=== PATIENT | male | born 1990 | race Caucasian/White ===

== ENCOUNTER 2017-03-29 10:02 | Emergency (ER) | payer SELFPAY ==
[~2017-03-29] VITALS: Ht 190.5 cm; Wt 67.0 kg
[~2017-03-29 10:02] MED LIST: DICL75TA PO; ROBA750T PO
[2017-03-29 10:08] VITALS: BP 132/74; PULSE 91; RESP 16; TEMP 97.3; O2SAT 98
--- NOTE | 2017-03-29 11:13 | PD ---
HPI Chief Complaint: Oral / Dental Pain or Problem Time Seen by Provider: 11:00 Travel History International Travel<30 days: No Contact w/Intl Traveler<30days: No Traveled to known affect area: No History of Present Illness HPI 27-year-old male presents to the emergency room for evaluation of left-sided lower dental pain and swelling that started yesterday. States he had no pain prior to onset of the symptoms. Patient has had so much pain he has been unable to eat and drink. He has not taken anything or done anything for his symptoms. Pain is worsened with any range of motion of the jaw. Denies drainage, fever, chills, nausea, and vomiting. Does not have a dentist. No chronic medical conditions or daily medications. PFSH Past Medical History Hx Anticoagulant Therapy: No Arthritis: No Asthma: Yes (SPORTS INDUCED YOUNGER AGE) Autoimmune Disease: No Blood Disorders: No Heart Rhythm Problems: No Cardiovascular Problems: No Chemotherapy: No Chest Pain: No Cerebrovascular Accident: No Cystic Fibrosis: No Developmental Delay: No Diabetes: No Diminished Hearing: No Gastrointestinal Disorders: No GERD: No Genitourinary: No Headaches: No Hypertension: No Implanted Vascular Access Dvce: No Musculoskeletal: No Neurologic: No Psychiatric: No Reproductive: No Respiratory: No Immunizations Current: Yes Seizures: No Sickle Cell Disease: No Sleep Apnea: No Ulcer: No Influenza Vaccination: No ?: Not Past Surgical History Abdominal Surgery: No Cardiac Surgery: No Ear Surgery: No Endocrine Surgery: No Eye Surgery: No Genitourinary Surgery: No Gynecologic Surgery: No Hysterectomy: No Neurologic Surgery: No Oral Surgery: No Thoracic Surgery: No Other Surgery: Yes (LEFT LUNG BIOPSY) Social History Alcohol Use: No Tobacco Use: Yes (CIGARETTES, 1 PPD) Substance Use: No (DENIES) Allergies-Medications (Allergen,Severity, Reaction): Uncoded Allergies: ANTIBIOTIC (Allergy, Unknown, 12/26/15) UNKNOWN WHICH ONE Reported Meds & Prescriptions Reported Meds & Active Scripts Active Tramadol (Tramadol HCl) 50 Mg Tab 50 Mg PO Q8H PRN Clindamycin (Clindamycin HCl) 300 Mg Cap 300 Mg PO Q6H 10 Days Review of Systems Except as stated in HPI: all other systems reviewed are Neg Physical Exam Narrative GENERAL: Well-nourished, well-developed male in no acute distress. Afebrile. Ambulatory. SKIN: Focused skin assessment warm/dry. HEAD: Normocephalic. EYES: No scleral icterus. No injection or drainage. NECK: Supple, trachea midline. No JVD or lymphadenopathy. DENTAL: Severe decay throughout. No malocclusion. Patient has limited range of motion of the jaw secondary to pain. CARDIOVASCULAR: Regular rate and rhythm without murmurs, gallops, or rubs. RESPIRATORY: Breath sounds equal bilaterally. No accessory muscle use. Data Data Last Documented VS Vital Signs Date Time Temp Pulse Resp B/P Pulse Ox O2 Delivery O2 Flow Rate FiO2 03/29/17 10:08 97.3 91 16 132/74 98 Orders Complete Blood Count With Diff (03/29/17 11:06) Blood Culture (03/29/17 11:06) Sodium Chloride 0.9% Flush (Ns Flush) (03/29/17 11:15) Clindamycin Inj (Cleocin Inj) (03/29/17 11:15) Morphine Inj (Morphine Inj) (03/29/17 11:15) Ondansetron Inj (Zofran Inj) (03/29/17 11:15) Comprehensive Metabolic Panel (03/29/17 11:06) Iv Access Insert/Monitor (03/29/17 11:06) Dexamethasone Inj (Decadron Inj) (03/29/17 12:45) Hydromorphone Pf Inj (Dilaudid Pf Inj) (03/29/17 12:45) Labs Laboratory Tests Test 03/29/17 03/29/17 11:25 11:58 White Blood Count 8.9 TH/MM3 Red Blood Count 5.41 MIL/MM3 Hemoglobin 15.0 GM/DL Hematocrit 44.6 % Mean Corpuscular Volume 82.6 FL Mean Corpuscular Hemoglobin 27.7 PG Mean Corpuscular Hemoglobin 33.6 % Concent Red Cell Distribution Width 14.8 % Platelet Count 238 TH/MM3 Mean Platelet Volume 7.7 FL Neutrophils (%) (Auto) 69.3 % Lymphocytes (%) (Auto) 19.0 % Monocytes (%) (Auto) 6.7 % Eosinophils (%) (Auto) 0.1 % Basophils (%) (Auto) 4.9 % Neutrophils # (Auto) 6.2 TH/MM3 Lymphocytes # (Auto) 1.7 TH/MM3 Monocytes # (Auto) 0.6 TH/MM3 Eosinophils # (Auto) 0.0 TH/MM3 Basophils # (Auto) 0.4 TH/MM3 CBC Comment DIFF FINAL Differential Comment Sodium Level 138 MEQ/L Potassium Level 3.4 MEQ/L Chloride Level 105 MEQ/L Carbon Dioxide Level 27.4 MEQ/L Anion Gap 6 MEQ/L Blood Urea Nitrogen 7 MG/DL Creatinine 0.71 MG/DL Estimat Glomerular Filtration 135 ML/MIN Rate Random Glucose 106 MG/DL Calcium Level 8.5 MG/DL Total Bilirubin 0.6 MG/DL Aspartate Amino Transf 16 U/L (AST/SGOT) Alanine Aminotransferase 130 U/L (ALT/SGPT) Alkaline Phosphatase 151 U/L Total Protein 7.0 GM/DL Albumin 3.4 GM/DL [facility] Medical Decision Making Medical Screen Exam Complete: Yes Emergency Medical Condition: Yes Medical Record Reviewed: Yes Differential Diagnosis Dentalgia, dental abscess, lymphadenopathy Narrative Course 27-year-old male presents to the emergency room for evaluation of left-sided dental pain and swelling for the past day. Patient denies systemic signs of infection. He is afebrile and well-appearing in the emergency room. Crying in pain. Physical exam reveals severe swelling of the left lower jaw with extreme tenderness to palpation. There is severe decay throughout. I spoke to my attending physician, Dr. Hightower, who assessed the patient and recommend lab work, pain control, and IV antibiotics in the emergency room. CBC and CMP are unremarkable. Because white count is not elevated and patient can open his mouth 2-3 cm, there is no indication for imaging at this time. Patient was given clindamycin, morphine, Zofran in the emergency room. He states morphine did not help. He was then given 0.5 mg Dilaudid and Decadron. Patient is stable for discharge. He was given a dental emergencies handout and prescriptions for clindamycin and tramadol. Told to follow-up with a dentist or return immediately for worsening symptoms. He understands and agrees to plan. Diagnosis Primary Impression: Dental abscess Referrals: Dentist Patient Instructions: Dental Abscess (ED), General Instructions Additional Instructions: Rest and drink plenty of fluids. [place] your teeth twice daily. Clindamycin as directed, until gone. Tramadol as directed, as needed for pain. Do not drink alcohol or drive while taking this medication. Follow-up with a dentist. Return to the emergency room for worsening symptoms. Med/Other Pt SpecificInfo: Prescription(s) given Scripts Tramadol 50 Mg Tab50 Mg PO Q8H PRN (PAIN) #12 TAB Ref 0 Prov:Lisandro Phillips MD 03/29/17 Clindamycin 300 Mg Yld274 Mg PO Q6H 10 Days Ref 0 Prov:Lisandro Phillips MD 03/29/17 Disposition: 01 DISCHARGE HOME Condition: Stable Sydney Carbajal Mar 29, 2017 11:13
[2017-03-29] MEDS ORDERED: MORPHINE SULFATE 4 MG/ML INJ IV PUSH ONE (11:15)
[2017-03-29] MEDS ORDERED: ONDANSETRON HCL 4 MG/2 ML VIAL IV PUSH ONE (11:15)
[2017-03-29] MEDS ORDERED: CLINDAMYCIN INJ 900 MG in SODIUM CHLORIDE 0.9% INJ 100 ML IV ONE (11:15)
[2017-03-29] MEDS ORDERED: SODIUM CHLORIDE 0.9% FLUSH 10 ML FLUSH IVF PRN (11:15)
[2017-03-29 11:48] LABS: AUTOMATED NEUTROPHIL # 6.2 TH/MM3 (1.8-7.7); BASOPHIL # 0.4 TH/MM3 (0-0.2); BASOPHIL % 4.9 % (0.0-2.0); EOSINOPHIL % 0.1 % (0.0-4.0); HEMATOCRIT 44.6 % (39.0-51.0); HEMO FLAGS DIFF FINAL; LYMPHOCYTE # 1.7 TH/MM3 (1.0-4.8); MEAN CELL VOLUME 82.6 FL (80.0-100.0); MEAN CORPUSCULAR HEMOGLOBIN 27.7 PG (27.0-34.0); MEAN CORPUSCULAR HGB CONC 33.6 % (32.0-36.0); MONO % 6.7 % (0.0-8.0); NEUT % 69.3 % (16.0-70.0); PLATELET COUNT 238 TH/MM3 (150-450); RED BLOOD COUNT 5.41 MIL/MM3 (4.50-5.90); RED CELL DISTRIBUTION WIDTH 14.8 % (11.6-17.2); WHITE BLOOD COUNT 8.9 TH/MM3 (4.0-11.0)
[2017-03-29] MEDS ORDERED: CLIN1CAP6 PO (12:02)
[2017-03-29] MEDS ORDERED: TRAM50TA PO (12:02)
[2017-03-29 12:11] LABS: CHLORIDE 105 MEQ/L (98-107); POTASSIUM 3.4 MEQ/L (3.5-5.1); SODIUM (NA) 138 MEQ/L (136-145)
[2017-03-29 12:15] LABS: ANION GAP 6 MEQ/L (5-15); BICARBONATE 27.4 MEQ/L (21.0-32.0); BLOOD UREA NITROGEN 7 MG/DL (7-18)
[2017-03-29 12:18] LABS: ALT (GPT) 130 U/L (12-78); AST (GOT) 16 U/L (15-37); GLOMERULAR FILTRATION RATE 135 ML/MIN (>89)
[2017-03-29 12:19] LABS: TOTAL BILIRUBIN ADULT 0.6 MG/DL (0.2-1.0)
[2017-03-29 12:21] LABS: ALKALINE PHOSPHATASE 151 U/L (45-117)
[2017-03-29] MEDS ORDERED: DEXAMETHASONE SOD PHOS 20 MG/5 ML VIAL IV PUSH ONE (12:45)
[2017-03-29] MEDS ORDERED: HYDROmorphone HCL PF 1 MG/ML VIAL IV PUSH ONE (12:45)
[2017-03-29 13:22] VITALS: BP 123/72; PULSE 66; RESP 18; O2SAT 97
[2017-03-29 14:13] VITALS: BP 125/74; TEMP 99.1
== END 2017-03-29 14:17 | disposition home or self-care (01) ==
LOC: PHEFT 10:02
DX: K04.7 Periapical abscess without sinus (principal); F17.200 Nicotine dependence, unspecified, uncomplicated; Z87.09 Personal history of other diseases of the respiratory system
CPT/HCPCS: 80053; 85025; 87040; 96365; 96366; 96375; 99284; J1100; J1170; J2270; J2405